=== PATIENT | female | born 1980 | race Hispanic/Latino ===

== ENCOUNTER 2018-09-10 10:17 | Outpatient (CLI) | payer OTHER | END 2018-09-10 10:18 | disposition home or self-care (01) | LOC: SPVIMAG 10:17 | PROVIDERS: ATTEND Surgery | DX: C50.211 Malignant neoplasm of upper-inner quadrant of right female breast (principal) | CPT/HCPCS: 77059; A9577; C8908 ==

== ENCOUNTER → 2018-10-11 | Outpatient (CLI) | payer OTHER | END | disposition short-term general hospital (02) | LOC: LABHHL 14:38 | PROVIDERS: ATTEND Surgery | DX: C50.911 Malignant neoplasm of unspecified site of right female breast (principal) | CPT/HCPCS: 88368 ==